=== PATIENT | male | born 1965 ===

== ENCOUNTER 2021-08-08 08:21 | Outpatient (CLI) | payer BC | END 2021-08-08 08:22 | disposition home or self-care (01) | LOC: RAD 08:21 | PROVIDERS: ATTEND Internal Medicine Critical Care Medicine | DX: R06.00 Dyspnea, unspecified (principal) | CPT/HCPCS: 71046 ==

== ENCOUNTER 2021-09-06 17:30 | Outpatient (CLI) | payer BC | END 2021-09-06 17:31 | disposition home or self-care (01) | LOC: SLEEPLAB 17:30 | PROVIDERS: ATTEND Internal Medicine Critical Care Medicine | DX: G47.33 Obstructive sleep apnea (adult) (pediatric) (principal); R06.83 Snoring; G47.00 Insomnia, unspecified; J45.909 Unspecified asthma, uncomplicated | CPT/HCPCS: 95806 ==

== ENCOUNTER 2024-07-09 15:57 | Outpatient (CLI) | payer OTHER | END 2024-07-09 15:58 | disposition home or self-care (01) | LOC: BICCT 15:57 | PROVIDERS: ATTEND Internal Medicine | DX: Z13.220 Encounter for screening for lipoid disorders (principal); Z82.49 Family history of ischemic heart disease and other diseases of the circulatory system | CPT/HCPCS: 75571 ==